=== PATIENT | male | born 1950 | race Caucasian/White ===

== ENCOUNTER 2018-02-13 00:02 | Emergency (ER) | payer MEDICARE, OTHER ==
[~2018-02-13] VITALS: Ht 162.6 cm; Wt 50.0 kg
[2018-02-13] VITALS (8 sets, daily range): BP systolic 100–128; BP diastolic 58–89; PULSE 76–104; RESP 16–18; TEMP 98.1–98.2; O2SAT 94–97
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
[2018-02-13] MEDS ORDERED: LORazepam 2 MG/ML VIAL IV PUSH ONE (00:15)
[2018-02-13] MEDS ORDERED: SODIUM CHLOR 0.9% 1000 ML INJ 1,000 ML IV SCH ×2 (00:15)
[2018-02-13] MEDS ORDERED: THIAMINE INJ 100 MG in SODIUM CHLORIDE 0.9% INJ 100 ML IV ONE (00:15)
[2018-02-13] MEDS ORDERED: SODIUM CHLORIDE 0.9% FLUSH 10 ML FLUSH IV FLUSH PRN (00:15)
[2018-02-13 01:05] LABS: AUTOMATED NEUTROPHIL # 6.6 TH/MM3 (1.8-7.7); BASOPHIL % 0.4 % (0.0-2.0); EOSINOPHIL # 0.3 TH/MM3 (0-0.4); EOSINOPHIL % 3.5 % (0.0-4.0); HEMATOCRIT 39.5 % (39.0-51.0); HEMOGLOBIN 13.2 GM/DL (13.0-17.0); LYMPH % 18.2 % (9.0-44.0); LYMPHOCYTE # 1.7 TH/MM3 (1.0-4.8); MEAN CELL VOLUME 86.2 FL (80.0-100.0); MEAN CORPUSCULAR HEMOGLOBIN 28.8 PG (27.0-34.0); MEAN CORPUSCULAR HGB CONC 33.4 % (32.0-36.0); MEAN PLATELET VOLUME 8.6 FL (7.0-11.0); MONO % 7.4 % (0.0-8.0); MONOCYTE # 0.7 TH/MM3 (0-0.9); NEUT % 70.5 % (16.0-70.0); PLATELET COUNT 203 TH/MM3 (150-450); RED BLOOD COUNT 4.58 MIL/MM3 (4.50-5.90); RED CELL DISTRIBUTION WIDTH 19.3 % (11.6-17.2); WHITE BLOOD COUNT 9.4 TH/MM3 (4.0-11.0)
[2018-02-13 01:17] LABS: ALBUMIN 2.6 GM/DL (3.4-5.0); ALT (GPT) 17 U/L (12-78); AST (GOT) 26 U/L (15-37); BICARBONATE 23.6 MEQ/L (21.0-32.0); BLOOD UREA NITROGEN 11 MG/DL (7-18); CALCIUM 7.5 MG/DL (8.5-10.1); CHLORIDE 99 MEQ/L (98-107); CREATININE 1.02 MG/DL (0.60-1.30); GLOMERULAR FILTRATION RATE 73 ML/MIN (>89); GLUCOSE,RANDOM 89 MG/DL (74-106); SODIUM (NA) 135 MEQ/L (136-145)
[2018-02-13 01:27] LABS: ALKALINE PHOSPHATASE 105 U/L (45-117); TOTAL BILIRUBIN ADULT 0.6 MG/DL (0.2-1.0); TOTAL PROTEIN 7.5 GM/DL (6.4-8.2)
[2018-02-13] MEDS ORDERED: POTASSIUM CHLORIDE 20 MEQ CONTROLLED RELEASE TAB PO ONE (02:15)
--- NOTE | 2018-02-13 10:26 | PD ---
Physical Exam Time Seen by Provider: 10:25 Narrative Please refer to previous providers documentation for details surrounding the patient's current visit. Data Data Last Documented VS Vital Signs Date Time Temp Pulse Resp B/P (MAP) Pulse Ox O2 Delivery O2 Flow Rate FiO2 02/13/18 03:46 76 16 100/58 (72) 94 Room Air 02/13/18 00:32 98.1 Orders Orders Ammonia (02/13/18 00:15) Complete Blood Count With Diff (02/13/18 00:15) Comprehensive Metabolic Panel (02/13/18 00:15) Creatine Kinase (Cpk) (02/13/18 00:15) Thyroid Stimulating Hormone (02/13/18 00:15) Urinalysis - C+S If Indicated (02/13/18 00:15) Blood Glucose (02/13/18 00:15) Ecg Monitoring (02/13/18 00:15) Iv Access Insert/Monitor (02/13/18 00:15) Oximetry (02/13/18 00:15) Sodium Chloride 0.9% Flush (Ns Flush) (02/13/18 00:15) Sodium Chlor 0.9% 1000 Ml Inj (Ns 1000 M (02/13/18 00:15) Sodium Chlor 0.9% 1000 Ml Inj (Ns 1000 M (02/13/18 00:15) Thiamine Inj (Thiamine Inj) (02/13/18 00:15) Drug Screen, Random Urine (02/13/18 00:15) Alcohol (Ethanol) (02/13/18 00:15) Lorazepam Inj (Ativan Inj) (02/13/18 00:15) Case Management Consult (02/13/18 ) Potassium Chloride (Kcl) (02/13/18 02:15) Psych Screen (02/13/18 02:09) Diet Regular Basic (02/13/18 Breakfast) Ed Discharge Order (02/13/18 10:25) Labs Laboratory Tests Test 02/13/18 00:46 White Blood Count 9.4 TH/MM3 Red Blood Count 4.58 MIL/MM3 Hemoglobin 13.2 GM/DL Hematocrit 39.5 % Mean Corpuscular Volume 86.2 FL Mean Corpuscular Hemoglobin 28.8 PG Mean Corpuscular Hemoglobin Concent 33.4 % Red Cell Distribution Width 19.3 % Platelet Count 203 TH/MM3 Mean Platelet Volume 8.6 FL Neutrophils (%) (Auto) 70.5 % Lymphocytes (%) (Auto) 18.2 % Monocytes (%) (Auto) 7.4 % Eosinophils (%) (Auto) 3.5 % Basophils (%) (Auto) 0.4 % Neutrophils # (Auto) 6.6 TH/MM3 Lymphocytes # (Auto) 1.7 TH/MM3 Monocytes # (Auto) 0.7 TH/MM3 Eosinophils # (Auto) 0.3 TH/MM3 Basophils # (Auto) 0.0 TH/MM3 CBC Comment DIFF FINAL Differential Comment Blood Urea Nitrogen 11 MG/DL Creatinine 1.02 MG/DL Random Glucose 89 MG/DL Total Protein 7.5 GM/DL Albumin 2.6 GM/DL Calcium Level 7.5 MG/DL Alkaline Phosphatase 105 U/L Aspartate Amino Transf (AST/SGOT) 26 U/L Alanine Aminotransferase (ALT/SGPT) 17 U/L Total Bilirubin 0.6 MG/DL Sodium Level 135 MEQ/L Potassium Level 3.2 MEQ/L Chloride Level 99 MEQ/L Carbon Dioxide Level 23.6 MEQ/L Anion Gap 12 MEQ/L Estimat Glomerular Filtration Rate 73 ML/MIN Ammonia 19 MCMOL/L Total Creatine Kinase 49 U/L Thyroid Stimulating Hormone 3rd Gen 2.470 uIU/ML Ethyl Alcohol Level 215 MG/DL [facility] Medical Record Reviewed: Yes Supervised Visit with DOMINIQUE: No Narrative Course Patient has been medically clear, evaluated by psychiatry, Burgess act has been lifted. He will be discharged at this time. Diagnosis Primary Impression: Medical clearance for psychiatric admission Additional Impressions: Alcohol intoxication Failure to thrive Scripts Unable to Obtain Active Prescriptions or Reported Meds Disposition: 03 DISCHARGE TO SNF Condition: Stable Estela Vick Feb 13, 2018 10:26
--- NOTE | 2018-02-13 10:47 | PD ---
History of Present Illness Chief Complaint: Psychiatric Symptoms Time Seen by Provider: 09:45 Travel History International Travel<30 Days: No Contact w/Intl Traveler<30days: No Known affected area: No History of Present Illness: Patient is a 67-year-old male who was transferred to the emergency room by [facility]'s office under a Burgess act. Burgess act states , " patient covered in urine and feces , unable to stand up fell when trying to get off the couch, patient has not eaten in 4 days , patient has no family friends to help refused medical treatment." Patient states that he drinks alot of beer everyday. He states that he owns his own home and that his nephew checks on him and brings him food. He states, " I have been eating , I am just thin because I like beer instead of food? " Patient served 24 years in the [employer] and is connect to the [facility] for care. He smokes 1ppd and denies any drugs. His alcohol level on arrival was 215. Chart reviewed and discussed with the nurse. Patient is in hospital [facility] in Room D39 of the Emergency Department. Alert and oriented x 4. Dishevel and malodorous. Recent and remote memory intact. Insight and judegement good. No abnormal thoughts. Patient has concrete thinking. Euthymic with mood in alignment with affect. Patient is not interested in assistance with his alcoholism. He states that he has his own home and can live independently . When asked about his hygiene he stated ," I am fine and I will clean up when I want to." Patient is at low risk for self harm or harm to others. He is a chronic alcoholic who does not want treatment. Will lift the Burgess Act and ask the ED staff to help him with transportation home. Dx: Mood disorder, alcohol induced. Psychiatric History Psychiatric History No past mental health history. Alcoholism. Social History Hx Alcohol Use: Yes Hx Tobacco Use: Yes Hx Substance Use: No Allergies-Medications (Allergen,Severity, Reaction): Coded Allergies: No Known Allergies (Unverified , 02/13/18) Reported Meds & Prescriptions Reported Meds & Active Scripts Active Active Prescriptions or Reported Medications Unobtainable Mental Status Examination Appearance: Dirty, Disheveled Consciousness: Alert Orientation: x4 Motor Activity: Abnormal gait (walks with a shuffle ) Speech: Unremarkable Language: Adequate Fund of Knowledge: Adequate Attention and Concentration: Adequate Memory: Unremarkable Mood: Appropriate Affect: Appropriate Thought Process & Associations: Intact Thought Content: Appropriate Hallucination Type: None Delusion Type: None Suicidal Ideation: No Suicidal Plan: No Suicidal Intention: No Homicidal Ideation: No Homicidal Plan: No Homicidal Intention: No Insight: Adequate Judgment: Adequate MDM Medical Decision Making Medical Record Reviewed: Yes Assessment/Plan Patient is a 67 y/o who is a chronic alcoholic. He lives in his own home and drinks beer daily. His nephew lives nearby and does assist him with the home and groceries. Alcohol level on arrival was 215. Patient is not interested in any assistance with his alcoholism. He feels that he is able to care for himself with the assistance of his nephew. He endorses no SI/HI. Patient is at low risk for self harm or harm of others. Patient refuses any assistance with his alcoholism. He does not feel that he needs assistance at home. He endorses that he drank too much and urinated on himself. Will give patient information on Detox if he is interested for future reference. Orders Orders Ammonia (02/13/18 00:15) Complete Blood Count With Diff (02/13/18 00:15) Comprehensive Metabolic Panel (02/13/18 00:15) Creatine Kinase (Cpk) (02/13/18:15) Thyroid Stimulating Hormone (02/13/18:15) Urinalysis - C+S If Indicated (02/13/18 00:15) Blood Glucose (02/13/18:15) Ecg Monitoring (02/13/18 00:15) Iv Access Insert/Monitor (02/13/18:15) Oximetry (02/13/18:15) Sodium Chloride 0.9% Flush (Ns Flush) (02/13/18 00:15) Sodium Chlor 0.9% 1000 Ml Inj (Ns 1000 M (02/13/18 00:15) Sodium Chlor 0.9% 1000 Ml Inj (Ns 1000 M (02/13/18 00:15) Thiamine Inj (Thiamine Inj) (02/13/18 00:15) Drug Screen, Random Urine (02/13/18 00:15) Alcohol (Ethanol) (02/13/18 00:15) Lorazepam Inj (Ativan Inj) (02/13/18 00:15) Case Management Consult (02/13/18 ) Potassium Chloride (Kcl) (02/13/18 02:15) Psych Screen (02/13/18 02:09) Diet Regular Basic (02/13/18 Breakfast) Ed Discharge Order (02/13/18 10:25) Results Vital Signs Date Time Temp Pulse Resp B/P (MAP) Pulse Ox O2 Delivery O2 Flow Rate FiO2 02/13/18 03:46 76 16 100/58 (72) 94 Room Air 02/13/18 00:52 95 Room Air 02/13/18 00:32 98.1 104 16 128/88 (101) 95 Laboratory Tests Test 02/13/18 00:46 White Blood Count 9.4 Red Blood Count 4.58 Hemoglobin 13.2 Hematocrit 39.5 Mean Corpuscular Volume 86.2 Mean Corpuscular Hemoglobin 28.8 Mean Corpuscular Hemoglobin Concent 33.4 Red Cell Distribution Width 19.3 Platelet Count 203 Mean Platelet Volume 8.6 Neutrophils (%) (Auto) 70.5 Lymphocytes (%) (Auto) 18.2 Monocytes (%) (Auto) 7.4 Eosinophils (%) (Auto) 3.5 Basophils (%) (Auto) 0.4 Neutrophils # (Auto) 6.6 Lymphocytes # (Auto) 1.7 Monocytes # (Auto) 0.7 Eosinophils # (Auto) 0.3 Basophils # (Auto) 0.0 CBC Comment DIFF FINAL Differential Comment Blood Urea Nitrogen 11 Creatinine 1.02 Random Glucose 89 Total Protein 7.5 Albumin 2.6 Calcium Level 7.5 Alkaline Phosphatase 105 Aspartate Amino Transf (AST/SGOT) 26 Alanine Aminotransferase (ALT/SGPT) 17 Total Bilirubin 0.6 Sodium Level 135 Potassium Level 3.2 Chloride Level 99 Carbon Dioxide Level 23.6 Anion Gap 12 Estimat Glomerular Filtration Rate 73 Ammonia 19 Total Creatine Kinase 49 Thyroid Stimulating Hormone 3rd Gen 2.470 Ethyl Alcohol Level 215 Diagnosis Primary Impression: Alcohol-induced mood disorder Prescriptions Unable to Obtain Active Prescriptions or Reported Meds Disposition: 01 DISCHARGE HOME Condition: Stable Emmanuelle Collins Feb 13, 2018 10:47
[2018-02-13 22:51] LABS: BLOOD, URINE NEG (NEG); GLUCOSE,URINE NEG (NEG); KETONE, URINE TRACE mg/dL (NEG); MUCUS URINE FEW /lpf (OCC); NITRITE,URINE NEG (NEG); SQUAMOUS EPITHELIAL CELL URINE <1 /hpf (0-5); URINE COLOR YELLOW (YELLW/STRAW); URINE LEUKOCYTE ESTERASE NEG (NEG)
[2018-02-13 22:53] LABS: BILIRUBIN, URINE NEG (NEG)
[2018-02-14 02:01] VITALS: BP 133/65; PULSE 79; RESP 16; O2SAT 96
[2018-02-14 05:44] VITALS: BP 125/60; PULSE 82; RESP 16; TEMP 98.6; O2SAT 99
--- NOTE | 2018-02-14 17:45 | HHI.FF ---
Face to Face Verification Diagnosis: (1) Alcohol-induced mood disorder (2) Failure to thrive Physical Therapy Order: Evaluate and Treat, Improve ambulation Occupational Therapy Order: Evaluate and Treat, Improve ADL Home Health Nursing Order: Medical education Medication education-adverse effect Home Health Aide Order: To Assist In: Bathing and personal care, heading saw operator and meal prep Operations Asst Order: To Evaluate: Living conditions/environment, Support services I have seen patient Angus Marrero on 02/14/18. My clinical findings support the need for the requested home health care services because: Ltd mobility - disease progression Limited ability to care for self High risk of falls I certify that my clinical findings support that this patient is homebound because: Unsteady gait/balance Louise Pedro MD Feb 14, 2018 17:45
[2018-02-14 19:45] VITALS: BP 132/78; PULSE 89; RESP 16; O2SAT 98
[2018-02-15 07:45] VITALS: BP 145/71; PULSE 62; RESP 16; O2SAT 99
--- NOTE | 2018-02-15 09:49 | PD ---
Physical Exam Date Seen by Provider: Feb 15, 2018 Time Seen by Provider: 09:46 Narrative For full history and physical examination please see previous notes. Data Data Last Documented VS Vital Signs Date Time Temp Pulse Resp B/P (MAP) Pulse Ox O2 Delivery O2 Flow Rate FiO2 02/15/18 07:45 62 16 145/71 (95) 99 Room Air 02/14/18 05:44 98.6 Orders Orders Ammonia (02/13/18 00:15) Complete Blood Count With Diff (02/13/18 00:15) Comprehensive Metabolic Panel (02/13/18 00:15) Creatine Kinase (Cpk) (02/13/18 00:15) Thyroid Stimulating Hormone (02/13/18 00:15) Urinalysis - C+S If Indicated (02/13/18 00:15) Blood Glucose (02/13/18 00:15) Ecg Monitoring (02/13/18 00:15) Iv Access Insert/Monitor (02/13/18 00:15) Oximetry (02/13/18 00:15) Sodium Chloride 0.9% Flush (Ns Flush) (02/13/18 00:15) Sodium Chlor 0.9% 1000 Ml Inj (Ns 1000 M (02/13/18 00:15) Sodium Chlor 0.9% 1000 Ml Inj (Ns 1000 M (02/13/18 00:15) Thiamine Inj (Thiamine Inj) (02/13/18 00:15) Drug Screen, Random Urine (02/13/18 00:15) Alcohol (Ethanol) (02/13/18 00:15) Lorazepam Inj (Ativan Inj) (02/13/18 00:15) Case Management Consult (02/13/18 ) Potassium Chloride (Kcl) (02/13/18 02:15) Psych Screen (02/13/18 02:09) Ed Discharge Order (02/13/18 10:25) Diet Regular Basic (02/13/18 Dinner) Diet Regular Basic (02/14/18 Breakfast) Diet Regular Basic (02/15/18 Breakfast) Labs Laboratory Tests Test 02/13/18 00:46 02/13/18 22:35 White Blood Count 9.4 TH/MM3 Red Blood Count 4.58 MIL/MM3 Hemoglobin 13.2 GM/DL Hematocrit 39.5 % Mean Corpuscular Volume 86.2 FL Mean Corpuscular Hemoglobin 28.8 PG Mean Corpuscular Hemoglobin Concent 33.4 % Red Cell Distribution Width 19.3 % Platelet Count 203 TH/MM3 Mean Platelet Volume 8.6 FL Neutrophils (%) (Auto) 70.5 % Lymphocytes (%) (Auto) 18.2 % Monocytes (%) (Auto) 7.4 % Eosinophils (%) (Auto) 3.5 % Basophils (%) (Auto) 0.4 % Neutrophils # (Auto) 6.6 TH/MM3 Lymphocytes # (Auto) 1.7 TH/MM3 Monocytes # (Auto) 0.7 TH/MM3 Eosinophils # (Auto) 0.3 TH/MM3 Basophils # (Auto) 0.0 TH/MM3 CBC Comment DIFF FINAL Differential Comment Blood Urea Nitrogen 11 MG/DL Creatinine 1.02 MG/DL Random Glucose 89 MG/DL Total Protein 7.5 GM/DL Albumin 2.6 GM/DL Calcium Level 7.5 MG/DL Alkaline Phosphatase 105 U/L Aspartate Amino Transf (AST/SGOT) 26 U/L Alanine Aminotransferase (ALT/SGPT) 17 U/L Total Bilirubin 0.6 MG/DL Sodium Level 135 MEQ/L Potassium Level 3.2 MEQ/L Chloride Level 99 MEQ/L Carbon Dioxide Level 23.6 MEQ/L Anion Gap 12 MEQ/L Estimat Glomerular Filtration Rate 73 ML/MIN Ammonia 19 MCMOL/L Total Creatine Kinase 49 U/L Thyroid Stimulating Hormone 3rd Gen 2.470 uIU/ML Ethyl Alcohol Level 215 MG/DL Urine Color YELLOW Urine Turbidity CLEAR Urine pH 6.0 Urine Specific Mchenry 1.021 Urine Protein TRACE mg/dL Urine Glucose (UA) NEG mg/dL Urine Ketones TRACE mg/dL Urine Occult Blood NEG Urine Nitrite NEG Urine Bilirubin NEG Urine Urobilinogen 8.0 MG/DL Urine Leukocyte Esterase NEG Urine RBC LESS THAN 1 /hpf Urine WBC 1 /hpf Urine Squamous Epithelial Cells <1 /hpf Urine Mucus FEW /lpf Microscopic Urinalysis Comment CATH-CULT NOT IND Urine Opiates Screen NEG Urine Barbiturates Screen NEG Urine Amphetamines Screen NEG Urine Benzodiazepines Screen NEG Urine Cocaine Screen NEG Urine Cannabinoids Screen NEG [facility] Medical Record Reviewed: Yes Supervised Visit with DOMINIQUE: No Interpretation(s) Laboratory Tests Test 02/13/18 00:46 02/13/18 22:35 White Blood Count 9.4 TH/MM3 Red Blood Count 4.58 MIL/MM3 Hemoglobin 13.2 GM/DL Hematocrit 39.5 % Mean Corpuscular Volume 86.2 FL Mean Corpuscular Hemoglobin 28.8 PG Mean Corpuscular Hemoglobin Concent 33.4 % Red Cell Distribution Width 19.3 % Platelet Count 203 TH/MM3 Mean Platelet Volume 8.6 FL Neutrophils (%) (Auto) 70.5 % Lymphocytes (%) (Auto) 18.2 % Monocytes (%) (Auto) 7.4 % Eosinophils (%) (Auto) 3.5 % Basophils (%) (Auto) 0.4 % Neutrophils # (Auto) 6.6 TH/MM3 Lymphocytes # (Auto) 1.7 TH/MM3 Monocytes # (Auto) 0.7 TH/MM3 Eosinophils # (Auto) 0.3 TH/MM3 Basophils # (Auto) 0.0 TH/MM3 CBC Comment DIFF FINAL Differential Comment Blood Urea Nitrogen 11 MG/DL Creatinine 1.02 MG/DL Random Glucose 89 MG/DL Total Protein 7.5 GM/DL Albumin 2.6 GM/DL Calcium Level 7.5 MG/DL Alkaline Phosphatase 105 U/L Aspartate Amino Transf (AST/SGOT) 26 U/L Alanine Aminotransferase (ALT/SGPT) 17 U/L Total Bilirubin 0.6 MG/DL Sodium Level 135 MEQ/L Potassium Level 3.2 MEQ/L Chloride Level 99 MEQ/L Carbon Dioxide Level 23.6 MEQ/L Anion Gap 12 MEQ/L Estimat Glomerular Filtration Rate 73 ML/MIN Ammonia 19 MCMOL/L Total Creatine Kinase 49 U/L Thyroid Stimulating Hormone 3rd Gen 2.470 uIU/ML Ethyl Alcohol Level 215 MG/DL Urine Color YELLOW Urine Turbidity CLEAR Urine pH 6.0 Urine Specific Mchenry 1.021 Urine Protein TRACE mg/dL Urine Glucose (UA) NEG mg/dL Urine Ketones TRACE mg/dL Urine Occult Blood NEG Urine Nitrite NEG Urine Bilirubin NEG Urine Urobilinogen 8.0 MG/DL Urine Leukocyte Esterase NEG Urine RBC LESS THAN 1 /hpf Urine WBC 1 /hpf Urine Squamous Epithelial Cells <1 /hpf Urine Mucus FEW /lpf Microscopic Urinalysis Comment CATH-CULT NOT IND Urine Opiates Screen NEG Urine Barbiturates Screen NEG Urine Amphetamines Screen NEG Urine Benzodiazepines Screen NEG Urine Cocaine Screen NEG Urine Cannabinoids Screen NEG Vital Signs Date Time Temp Pulse Resp B/P (MAP) Pulse Ox O2 Delivery O2 Flow Rate FiO2 02/15/18 07:45 62 16 145/71 (95) 99 Room Air 02/14/18 19:45 89 16 132/78 (96) 98 Room Air 02/14/18 05:44 98.6 82 16 125/60 (81) 99 Room Air 02/14/18 02:01 79 16 133/65 (87) 96 Room Air 02/13/18 21:52 82 16 116/64 (81) 96 Room Air 02/13/18 17:09 83 18 102/63 (76) 97 Room Air 02/13/18 16:21 88 18 110/86 (94) 94 Room Air 02/13/18 13:48 98.2 80 16 105/89 (94) 95 Room Air 02/13/18 09:47 80 18 110/60 (77) 95 Room Air 02/13/18 03:46 76 16 100/58 (72) 94 Room Air 02/13/18 00:52 95 Room Air 02/13/18 00:32 98.1 104 16 128/88 (101) 95 Narrative Course Patient was initially seen and evaluated in the emergency department after being placed under Burgess act. He was medically cleared, he was then seen and evaluated by psychiatry, the Burgess act was lifted. Please see previous notes. Discharge was held until home health could be arranged. Home health was held up because patient apparently did not have a primary doctor although he was followed at the OR clinic. Discussed with case management this morning. Patient was set up with home health, they will visit his home tomorrow. Per pillowcase cleaner patient is able to be discharged home. Transport will be set up by case management. Diagnosis Primary Impression: Medical clearance for psychiatric admission Additional Impressions: Alcohol intoxication Qualified Codes: F10.920 - Alcohol use, unspecified with intoxication, uncomplicated Failure to thrive Qualified Codes: R62.7 - Adult failure to thrive Referrals: Primary Care Physician Patient Instructions: Abuse of Alcohol (ED), Alcohol Intoxication (ED), General Instructions Departure Forms: Tests/Procedures Additional Instruction: Home health has been set up for you, they will be seeing her home tomorrow Follow-up with your primary doctor Return to emergency department for any new or worsening symptoms Avoid excessive intake of alcohol, avoid alcohol intake altogether as much as possible Maintain a well-balanced diet, increase oral fluid intake Med/Other Pt SpecificInfo: No Change to Meds Scripts Unable to Obtain Active Prescriptions or Reported Meds Disposition: 06 DISCH W/HOME HEALTH SERVICE Condition: Stable Rolanda Valle Feb 15, 2018 09:49
--- NOTE | 2018-02-15 10:40 | HHI.FF ---
Face to Face Verification Diagnosis: (1) Failure to thrive (2) Alcohol-induced mood disorder Physical Therapy Order: Evaluate and Treat, Improve ambulation, Strength and gait training Home Health Nursing Order: Signs/symptoms of disease process Medication education-adverse effect Nursing assessment with vital signs Home Health Aide Order: To Assist In: Bathing and personal care Test Automation Architect Order: To Evaluate: Living conditions/environment, Support services Order: To Provide: Long range planning, Community services I have seen patient Angus Marrero on 02/15/18. My clinical findings support the need for the requested home health care services because: Med compliance is questionable Limited ability to care for self Need for psychosocial assistance Impaired cognition/judgement I certify that my clinical findings support that this patient is homebound because: Impaired cognitive ability/safety Need for psychosocial assistance Rolanda ValleP Feb 15, 2018 10:40
== END 2018-02-15 11:15 | disposition home health service (06) ==
LOC: NEPD 00:02
DX: F10.24 Alcohol dependence with alcohol-induced mood disorder (principal); F10.229 Alcohol dependence with intoxication, unspecified; R62.7 Adult failure to thrive; Y90.7 Blood alcohol level of 200-239 mg/100 ml; I10 Essential (primary) hypertension; J44.9 Chronic obstructive pulmonary disease, unspecified; Z72.0 Tobacco use
CPT/HCPCS: 80053; 80307; 81001; 82140; 82550; 84443; 85025; 96365; 96375; 99284; J2060; J3411; J7030